=== PATIENT | male | born 1945 | race Caucasian/White ===

== ENCOUNTER 2018-09-25 08:47 | Inpatient (IN) | payer OTHER ==
[2018-09-25] VITALS (13 sets, daily range): BP systolic 91–141; BP diastolic 59–82
[~2018-09-25] VITALS: Ht 185.4 cm; Wt 94.2 kg
--- NOTE | ~2018-09-25 | EKG ---
[address] [place] [address] ELECTROCARDIOGRAM REPORT Name: SIMBA RICARDO Room #: 214-P ADM IN M.R.#: [id number] Admission: 09/25/18 Attend Phys: Joanna Cosme MD Discharge: Date of : 49 Report #: [id number] THIS REPORT FOR: //name// [facility] ED Test Date: 2018-09-25 Test Time: 08:52:06 Pat Name: SIMBA RICARDO Department: Room: 214 P Gender: M Packing Inspector: anamaria : 1945 Requested By: Buck Reynoso Order Number: [id number] MD: Measurements Intervals [place] Rate: 60 P: 73 OK: 275 QRS: 49 QRSD: 103 T: 101 QT: 415 QTc: 415 Interpretive Statements Sinus rhythm Prolonged [place] interval Inferior infarct, acute (RCA) Probable RV involvement, suggest recording right precordial leads No previous ECG available for comparison [email or web address] By: 0852 0852 Epiphany Epiphany, /EPI
--- NOTE | 2018-09-25 08:47 | NUR ---
FOAM RUBBER MIXER ACTIVATED AT 0832 ON EMS EARLY NOTIFICATION LOSS PREVENTION LEAD
[2018-09-25 09:29] LABS: HEMATOCRIT 44.1 % (42.0-52.0); HEMOGLOBIN 15.2 gm/dL (14.0-18.0); MCH 30.4 pg (26.0-34.0); MCHC 34.3 g/dL (28.0-37.0); MCV 88.6 fL (80.0-100.0); RBC 4.98 mil/uL (4.50-6.00); RDW 13.7 % (10.5-14.5); WBC 6.5 thou/uL (4.0-11.0)
[2018-09-25 09:32] LABS: ANION GAP 14 mmol/L (7-16); BUN 16 mg/dL (7-18); CALCIUM 9.3 mg/dL (8.5-10.1); CHLORIDE 103 mmol/L (98-107); CO2 22 mmol/L (21-32); CREATININE 1.4 mg/dL (0.7-1.3); GLUCOSE 151 mg/dL (74-106); SODIUM 139 mmol/L (136-145)
[2018-09-25 09:40] LABS: ALBUMIN 3.6 g/dL (3.4-5.0); SGOT 24 U/L (15-37); SGPT 31 U/L (30-65); TOTAL BILIRUBIN 0.3 mg/dL (<0.1-1.0); TOTAL PROTEIN 6.9 g/dL (6.4-8.2); TROPONIN-I <0.06 ng/mL (<0.06)
[2018-09-25 10:38] LABS: CHOLESTEROL 223 mg/dL (<200); HDL CHOLESTEROL 46 mg/dL (>40); LDL CHOLESTEROL 155 mg/dL (<100); TC:HDL 4.8 Ratio (Not establshd); TRIGLYCERIDE 112 mg/dL (<150); VLDL 22 mg/dL (<40)
[2018-09-25 10:44] LABS: SERUM ASSESSMENT Clear
--- NOTE | 2018-09-25 12:06 | EKG ---
[address] [employer] [place] [address] ELECTROCARDIOGRAM REPORT Name: SIMBA RICARDO Room #: 214-P ADM IN M.R.#: [id number] Admission: 09/25/18 Attend Phys: Joanna Cosme MD Discharge: Date of : 49 Report #: [id number] THIS REPORT FOR: //name// [facility] ED Test Date: 2018-09-25 Test Time: 08:52:06 Pat Name: SIMBA RICARDO Department: Room: 214 P Gender: M Cpa Tax: anamaria : 1945 Requested By: Buck Reynoso Order Number: [id number] MD: Buck Reynoso Measurements Intervals [place] Rate: 60 P: 73 MI: 275 QRS: 49 QRSD: 103 T: 101 QT: 415 QTc: 415 Interpretive Statements Sinus rhythm Prolonged MI interval Inferior infarct, acute (RCA) Probable RV involvement, suggest recording right precordial leads No previous ECG available for comparison Electronically Signed On 09-25-2018 12:06:25 FOUNTAIN MANAGER by Buck Reynoso [email or web address] <ELECTRONICALLY SIGNED> By: Buck Reynoso MD, [facility] 09/25/18 1206 Buck Reynoso MD, [facility] /EPI
--- NOTE | 2018-09-25 12:13 | EKG ---
[address] [address] ELECTROCARDIOGRAM REPORT Name: SIMBA RICARDO Room #: 214-P ADM IN M.R.#: [id number] Admission: 09/25/18 Attend Phys: Joanna Cosme MD Discharge: Date of : 49 Report #: [id number] THIS REPORT FOR: //name// [facility] Test Date: 2018-09-25 Test Time: 10:53:43 Pat Name: SIMBA RICARDO Department: Room: 214 P Gender: M Missile Pad Mechanic: VINCENT : 1945 Requested By: Buck Reynoso Order Number: [id number] MD: Buck Reynoso Measurements Intervals [place] Rate: 61 P: 45 OK: 230 QRS: -3 QRSD: 94 T: 90 QT: 424 QTc: 427 Interpretive Statements Sinus rhythm Prolonged OK interval Inferior infarct, recent No previous ECG available for comparison Electronically Signed On 09-25-2018 12:13:03 PARTY HOST/HOSTESS by Buck Reynoso [email or web address] <ELECTRONICALLY SIGNED> By: Buck Reynoso MD, [facility] 09/25/18 1213 1053 1053 Buck Reynoso MD, FACC /EPI
--- NOTE | 2018-09-25 12:15 | HC ---
[facility] [place] [address] CONSULTATION Name: SIMBA RICARDO Room #: 214-P [facility] IN M.R.#: [id number] Admission: 09/25/18 Attend Phys: Joanna Cosme MD Discharge: Date of : 49 Report #: [id number] THIS REPORT FOR: //name// CC: Mitch Cosme DATE OF SERVICE: 09/25/2018 REASON FOR CONSULTATION: Chest pain. HISTORY OF PRESENT ILLNESS: The patient is a 73-year-old gentleman with a fairly limited past medical history. Around 7:00 a.m. this morning, he experienced upper neck midsternal chest and back pain. This is associated with mild diaphoresis. Paramedics were summoned and an EKG in the field at 08:28 a.m. demonstrated inferior injury pattern. He has ongoing discomfort. No heart failure symptoms including orthopnea, paroxysmal nocturnal dyspnea, or lower extremity edema. No history of palpitations, near syncope or syncope. MEDICATIONS: Include eye drops for glaucoma. ALLERGIES: PCN, sulfa. PAST MEDICAL HISTORY: Medical records. No significant hospitalizations, surgeries or illnesses. 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 FAMILY HISTORY: Notable for coronary artery disease in several family members. REVIEW OF SYSTEMS: All systems negative except as that noted above. PHYSICAL EXAMINATION: GENERAL: A pleasant gentleman in moderate distress. VITAL SIGNS: Blood pressure is 110/70, heart rate of 60 and regular, respirations unlabored. HEENT: There are neither xanthelasma, subcutaneous xanthomata, oral mucosal or digital cyanosis or kyphoscoliosis present. CHEST: Clear to auscultation and percussion. CARDIAC: Regular rate and rhythm with normal S1, S2. Heart sounds are distant. ABDOMEN: Soft and nontender. EXTREMITIES: Without cyanosis, clubbing or edema. Radial pulses are 2+. NEUROLOGIC: He is alert with a nonfocal exam. LABORATORY DATA: EKG, sinus rhythm with first degree AV block, inferior injury pattern. Blood work and radiographic studies remain pending. [facility] [address] [place] [address] CONSULTATION Name: SIMBA RICARDO Room #: 214-P [facility] IN M.R.#: [id number] Admission: 09/25/18 Attend Phys: Joanna Cosme MD Discharge: Date of : 49 Report #: [id number] IMPRESSION: 1. Acute inferior myocardial infarction 2. Dyslipidemia 3. Sleep apnea RECOMMENDATIONS: 1. Therapy with antiplatelets, anticoagulants. 2. Urgent coronary angiography. I have discussed the angiographic procedure in detail including its associated risks. After a thorough discussion of the procedure, its risks and alternatives, he is agreeable to proceeding. No contraindications to dual antiplatelet therapy. <ELECTRONICALLY SIGNED> By: Buck Reynoso MD, [facility] 09/25/18 1215 0903 1107 Buck Reynoso MD, FACC /nt
[2018-09-25 23:05] LABS: GLYCOHEMOGLOBIN (HGB A1C) 5.7 % (4.8-5.6)
[2018-09-26] VITALS (7 sets, daily range): BP systolic 98–117; BP diastolic 49–72
[2018-09-26 03:55] LABS: ANION GAP 9 mmol/L (7-16); BUN 14 mg/dL (7-18); CALCIUM 8.5 mg/dL (8.5-10.1); CHLORIDE 105 mmol/L (98-107); CO2 25 mmol/L (21-32); CREATININE 1.1 mg/dL (0.7-1.3); GLUCOSE 116 mg/dL (74-106); SODIUM 139 mmol/L (136-145)
[2018-09-26 04:10] LABS: HEMATOCRIT 37.2 % (42.0-52.0); MCH 30.3 pg (26.0-34.0); MCHC 33.3 g/dL (28.0-37.0); RBC 4.09 mil/uL (4.50-6.00); RDW 14.1 % (10.5-14.5); TROPONIN-I > 40.00 ng/mL (<0.06); WBC 9.4 thou/uL (4.0-11.0)
[2018-09-26 04:21] LABS: HEMOGLOBIN 12.4 gm/dL (14.0-18.0)
--- NOTE | 2018-09-26 07:43 | NUR ---
ASSUME CARE 1900. PT/VITALS STABLE. MILD NON CARDIAC CHEST PAIN NOTED. ASSESSMENT CHARTED. PROGRESSNG WELL WITH POC. PLAN IS A POSSIBLE DISCHARGE TOMORROW FOLLOWING STEMI PROTOCOL. WILL CONTINUE TO MONITOR AND FOLLOW WITH POC
--- NOTE | 2018-09-26 09:23 | EKG ---
[address] [place] [address] ELECTROCARDIOGRAM REPORT Name: SIMBA RICARDO Room #: 214-P ADM IN M.R.#: [id number] Admission: 09/25/18 Attend Phys: Joanna Cosme MD Discharge: Date of : [birth year] Report #: [id number] THIS REPORT FOR: //name// [facility] Test Date: 2018-09-26 Test Time: 07:00:17 Pat Name: SIMBA RICARDO Department: Room: 214 P Gender: M Hostage Negotiator: : 1945 Requested By: Buck Reynoso Order Number: [id number] MD: Buck Reynoso Measurements Intervals [place] Rate: 56 P: 48 NV: 202 QRS: -20 QRSD: 82 T: 48 QT: 403 QTc: 389 Interpretive Statements Sinus rhythm Abnormal R-wave progression, early transition Inferior infarct, old Compared to ECG 09/25/2018 10:53:43 First degree AV block no longer present Electronically Signed On 09-26-2018 9:22:41 MEDIC TECHNICIAN by Buck Reynoso [email or web address] <ELECTRONICALLY SIGNED> By: Buck Reynoso MD, [facility] 09/26/18921 9 9 Buck Reynoso MD, [facility] /EPI
--- NOTE | 2018-09-26 11:11 | NUR ---
PT HAS LARGE BRUISING AREA RIGHT GROIN. PT HAS BEEN ASSESSED BY OIL AND GAS FIELD TECHNICIAN AND INFORMED PT THAT BRUISING WILL INCREASE MORE UNTIL EVENTUALY GOING AWAY. NO BLEDING AT SITE OR HEMATOMA. WILL CONTINUE TO ASSESS.
--- NOTE | 2018-09-26 11:22 | 2DMMODE ---
[facility] [place] [address] 2 D/M-MODE ECHOCARDIOGRAM Name: DAVIONSIMBA Room #: 214-P ADM IN M.R.#: [id number] Admission: 09/25/18 Attend Phys: Joanna Cosme MD Discharge: Date of : 49 Date of Service: 09/26/18 1121 Report #: [id number] THIS REPORT FOR: //name// APPROVED REPORT Study performed: 09/26/2018 09:36:37 EXAM: Comprehensive 2D, Doppler, and color-flow Echocardiogram Patient Location: Bedside Room #: 214 Status: routine BSA: 2.18 HR: 59 bpm BP: 117/72 mmHg Rhythm: NSR Other Information Study Quality: Adequate Risk Factors: Cardiac Risk Factors: Hyperlipidemia, HTN Indications Chest Pain S/P Stent RCA Inferior AK 2D Dimensions IVSd: 9.08 (7-11mm) LVOT Diam: 20.00 (18-24mm) LVDd: 39.58 mm PWd: 9.39 (7-11mm) Ascending Ao: 29.55 (22-36mm) LVDs: 26.02 (25-40mm) Aortic Root: 32.28 mm LV Single Plane 4CH: 61.69 % LV Single Plane 2CH: 67.11 % Biplane EF: 64.8 % Volumes Left Atrial Volume (Systole) Single Plane 4CH: 30.26 mL Single Plane 2CH: 58.59 mL LA ESV Index: 22.00 mL/m2 Aortic Valve AoV Peak Law.: 1.39 m/s AO Peak Gr.: 7.69 mmHg LVOT Max P.51 mmHg [facility] [address] [place] [address] 2 D/M-MODE ECHOCARDIOGRAM Name: DAVIONSIMBA Room #: 214-P ADM IN ..#: [id number] Admission: 09/25/18 Attend Phys: Joanna Cosme MD Discharge: Date of : 49 Date of Service: 09/26/18 1121 Report #: [id number] LVOT Max V: 1.06 m/s BENITO Vmax: 2.51 cm2 Mitral Valve E/A Ratio: 1.4 MV Decel. Time: 218.34 ms MV E Max Law.: 0.69 m/s MV A Law.: 0.49 m/s MV PHT: 63.32 ms IVRT: 41.52 ms TDI E/Lateral E': 9.86 E/Medial E': 9.86 Medial E' Law.: 0.07 m/s Lateral E' Law.: 0.07 m/s Pulmonary Valve PV Peak Law.: 0.92 m/s PV Peak Gr.: 3.36 mmHg Pulmonary Vein P Vein S: 0.56 m/s P Vein A: 0.35 m/s P Vein D: 0.39 m/s P Vein A Dur.: 115.3 msec P Vein S/D Ratio: 1.44 Tricuspid Valve TR Peak Law.: 2.19 m/s RAP Estimate: 7.00 mmHg TR Peak Gr.: 19.13 mmHg PA Pressure: 26.00 mmHg Left Ventricle The left ventricle is normal size. There is normal left ventricular wall thickness. Left ventricular systolic function is normal. Hypokinesis base of inferior, inferolateral and inferoseptal goldsmith. LVEF 50%. The left ventricular diastolic function is normal. Right Ventricle The right ventricle is normal size. The right ventricular systolic function is normal. Atria The left atrium size is normal. The right atrium size is normal. Aortic Valve The aortic valve is normal in structure. No aortic regurgitation is present. There is no aortic valvular stenosis. [facility] [address] [place] [address] 2 D/M-MODE ECHOCARDIOGRAM Name: SIMBA RICARDO Room #: 214-P [facility] IN .R.#: [id number] Admission: 09/25/18 Attend Phys: Joanna Cosme MD Discharge: Date of : 49 Date of Service: 09/26/18 1121 Report #: [id number] Mitral Valve The mitral valve is normal in structure. Trace mitral regurgitation. No evidence of mitral valve stenosis. Tricuspid Valve The tricuspid valve is normal in structure. Trace tricuspid regurgitation. Pulmonary artery pressure is 26 mmHg. Pulmonic Valve The pulmonary valve is normal in structure. Trace pulmonic regurgitation. Great Vessels The aortic root is normal in size. IVC is normal in size and collapses >50% with inspiration. Pericardium There is no pericardial effusion. <Conclusion> Left ventricular systolic function is normal. Hypokinesis base of inferior, inferolateral and inferoseptal goldsmith. LVEF 50%. The left ventricular diastolic function is normal. The aortic valve is normal in structure. No aortic regurgitation or stenosis The mitral valve is normal in structure. Trace mitral regurgitation. Trace tricuspid regurgitation. Pulmonary artery pressure of 26 mmHg. There is no pericardial effusion. <ELECTRONICALLY SIGNED> By: Buck Reynoso MD, FACC 09/26/18 112 112 112 Buck Reynoso MD, FACC /INF
--- NOTE | 2018-09-26 18:47 | NUR ---
PT AMBULATED HALLS WELL. PT HAD NO COMPLAINTS THIS SHIFT.
[2018-09-27 03:04] VITALS: BP 109/66
[2018-09-27 03:32] LABS: CALCIUM 8.8 mg/dL (8.5-10.1); CREATININE 1.1 mg/dL (0.7-1.3); POTASSIUM 4.1 mmol/L (3.5-5.1)
[2018-09-27 03:38] LABS: HEMOGLOBIN 12.7 gm/dL (14.0-18.0); MCHC 34.2 g/dL (28.0-37.0); MCV 90.6 fL (80.0-100.0); RBC 4.09 mil/uL (4.50-6.00); RDW 13.6 % (10.5-14.5)
--- NOTE | 2018-09-27 07:42 | NUR ---
ASSUME CARE 1900. PT/VITALS STABLE. DENIES ANY PAIN. TOLERATING ACTIVITY WELL. UP AD CY. PROGRESSING WELL WITH POC. PLAN IS DISCHARGE TODAY. WILL CONTINUE TO MONITOR AND FOLLOW WITH POC
--- NOTE | 2018-09-27 08:39 | EKG ---
[address] [place] [address] ELECTROCARDIOGRAM REPORT Name: SIMBA RICARDO Room #: 214-P ADM IN M.R.#: [id number] Admission: 09/25/18 Attend Phys: Joanna Cosme MD Discharge: Date of : 49 Report #: [id number] THIS REPORT FOR: //name// [facility] Test Date: 2018-09-27 Test Time: 07:07:59 Pat Name: SIMBA RICARDO Department: Room: 214 P Gender: M Space Officer: : 1945 Requested By: Missy aBrrera Order Number: [id number] MD: Buck Reynoso Measurements Intervals [place] Rate: 76 P: 47 NV: 191 QRS: -19 QRSD: 87 T: -3 QT: 359 QTc: 404 Interpretive Statements Sinus rhythm Consider inferoposterior infarct Compared to ECG 09/26/2018 07:00:17 No significant changes Electronically Signed On 09-27-2018 8:39:37 JUNIOR SYSTEMS ADMINISTRATOR by Buck Reynoso [email or web address] <ELECTRONICALLY SIGNED> By: Buck Reynoso MD, [facility] 09/27/18 0839 0707 6 Buck Reynoso MD, FACC /EPI
[2018-09-27 08:55] VITALS: BP 98/55
[2018-09-27] MEDS ORDERED: EFFIENT10 MG PO (08:57)
[2018-09-27] MEDS ORDERED: ASPIRIN325 PO (08:57)
[2018-09-27] MEDS ORDERED: ATORVASTATIN CA40 MG PO (08:57)
[2018-09-27] MEDS ORDERED: TOPROL XL25 MG PO (08:57)
[2018-09-27] MEDS ORDERED: PRINIVIL10 MG PO (08:58)
--- NOTE | 2018-09-27 10:21 | NUR ---
PT CARE ASSUMED APPROX 0700. PT ALERT AND ORIENTED X4. DENIES PAIN AND SOA. VSS. PT TO DISCHARGE HOME TO SELF CARE. PT DENIES QUESTIONS OR CONCERNS REGARDING DISCHARGE MEDS, F/U APPTS, DIET, ACTIVITY LEVEL, POST CATH INSTRUCTIONS, AND GENERAL POST HOSPITAL CARE. RIGHT GROIN POST CATH SITE C/D/I AND POST CATH DISCHARGE FORM ATTACHED TO DISCHARGE PAPERWORK. IV OUT, TELE BOX OFF. WILL ESCORT PT OUT TIMELY.
[2018-09-27 10:28] VITALS: BP 98/60
--- NOTE | 2018-09-27 11:05 | NUR ---
HOSPITAL STAFF ESCORTED PT OUT AT THIS TIME.
--- NOTE | 2018-09-29 08:39 | CATHLAB ---
[facility] [place] [place] [address] INVASIVE PROCEDURE REPORT Name: SIMBA RICARDO Room #: 214-P DIS IN M.R.#: [id number] Admission: 09/25/18 Attend Phys: Joanna Cosme MD Discharge: 09/27/18 Date of : 49 Date of Service: 09/29/18 0839 Report #: [id number] THIS REPORT FOR: //name// ADDENDUM APPROVED REPORT Study performed: 09/25/2018 09:03:25 Patient Details Patient Status: In-Patient Room #: The patient is a 73 year-old male Event Personnel Buck Reynoso Balance Wheel Hand Filer, Sallie Courtney RN RN, Ciera Restrepo Monitor, Shu Mastersonub, Danette Licona RT(R)() Scrrazia Procedures Performed Art Access - R femoral artery* 23389 Initial Mod Sed Same Phys/QHP Gr5y 645773 10869 Mod Sed Same Phys/QHP Ea 194266 Left Heart Cath w/or w/o Coronaries 1004160 [facility] Revasc AMI Total/Sub Single RCA C9606 AMIREVSING Aortogram Abdominal Peripheral Angio 199328 Hemostasis w/ Mynx Indication STEMI (>0 to less than or equal to 6 hours) Procedure Narrative The patient was brought emergently to the Cardiac Catheterization Laboratory and was prepped and draped in a sterile manner. The Right Groin^ was infiltrated with 1% Lidocaine subcutaneous anesthesia. A PINNACLE 6FR Sheath #[id number] sheath was inserted into the RFA^. Coronary angiography was performed using coronary diagnostic catheters. The right coronary system was accessed and visualized with a JR 4 catheter. The left coronary system was accessed and visualized with a JL 4 catheter. The left ventricle was accessed and visualized with a Pigtail catheter. Left ventricular/Aortic Valve gradient assessed via catheter pullback. Left ventriculogram was performed in RABAGO projection. An aortogram of the abdominal aorta was performed. Closure device was deployed with a 6 Fr [facility] [place] [address] INVASIVE PROCEDURE REPORT Name: SIMBA RICARDO Room #: 214-P [facility] IN [facility].#: [id number] Admission: 09/25/18 Attend Phys: Joanna Cosme MD Discharge: 09/27/18 Date of : 49 Date of Service: 09/29/18 0839 Report #: [id number] Mynx. The patient tolerated the procedure well and there were no complications associated with the procedure. There was no hematoma. Intraoperative Conscious Sedation Sedation start time: 09:15 Case end Time: 10:14 Fentanyl 50 mcg Versed 1 mg Fluoro Time: 11.29 minutes Dose: DAP 8892.00 cGycm2 997 mGy Contrast Type and Amount: Visipaque 250 ml Coronary Angiography The patient's coronary anatomy is right dominant. [place] Artery Percent Stenosis Aortography demonstrated a normal calibered aorta. Mild aortoiliac plaquing. 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 Follow closely Diagnostic Cath Left Main 20-30% distal left main plaquing LAD The left anterior descending was diffusely disease. There is a long tubular 50-60% proximal to mid LAD stenosis. 75% stenosis of the distal third of the LAD Diagonal 1 Relatively small and angiographically normal Diagonal 2 Moderate in size and angiographically normal Circumflex The circumflex was large and comprised of a single bifurcating marginal branch. Mild 20-30% proximal marginal branch plaquing. Right Coronary The right coronary was occluded proximally. JANET 0 flow R PDA Large posterior descending branch, angiographically normal RPLV Large posterior lateral branch, angiographically normal Left Ventriculography The left ventricle is normal in size with abnormal contractility. The left ventricular ejection fraction is estimated to be 45-50%. Left ventricular wall motion abnormalities are present. There is no mitral insufficiency. Mild inferior wall hypokinesis Hemodynamics [facility] [address] [place] [address] INVASIVE PROCEDURE REPORT Name: SIMBA RICARDO Room #: 214-P [facility] IN M.R.#: [id number] Admission: 09/25/18 Attend Phys: Joanna Cosme MD Discharge: 09/27/18 Date of : 49 Date of Service: 09/29/18 0839 Report #: [id number] The aortic pressure is 174/80 mmHg with a mean of 114 mmHg. The left ventricular pressure is 137/6 mmHg with a mean of mmHg. The left ventricular end diastolic pressure is 17 mmHg. PCI Technique Lesion Anticoagulation was achieved with Heparin, Integrilin. Patient was preloaded with Effient. Percutaneous coronary intervention was performed on the proximal right coronary artery. The lesion stenosis prior to intervention was 100% with JANET 0 flow. A LAUNCHER 6FR JR 4 #[id number] Guide Catheter was used to engage the ostium. A Luge Wire .014 x 182CM #[id number] Interventional Guidewire was used to cross the lesion. BALLOON DILATION A Balloon catheter Euphora RX 2.5 x 12 #[id number] was inserted and inflated up to 6.00atm for 15seconds. Repeat angiography revealed the following post-dilatation results: long severe proximal to mid right coronary residual stenosis. JANET-3 flow restored. Additional Inflation: 8.00atm for 24seconds. Additional Inflation: 10.00atm for 28seconds. STENT DEPLOYMENT A drug-eluting stent RESOLUTE ALEXI RX 3.0 X 30 #[id number] was inserted and inflated up to 14.00atm for 25seconds. Repeat angiography revealed the following post-stent deployment results: 0% residual stenosis. JANET-3 flow maintained. POST STENT DEPLOYMENT BALLOON DILATION A Balloon catheter TREK NC RX 3.0 X 15 #[id number] was inserted and inflated up to 20.00atm for 25seconds. Additional Inflation: 20.00atm for 32seconds. Additional Inflation: 22.00atm for 22seconds. Final angiography reveals 0 % stenosis with JANET 3 flow. Conclusion 1. Mild left ventricular dysfunction with inferior wall hypokinesis. Ejection fraction 45-50%. [facility] [address] [place] [address] INVASIVE PROCEDURE REPORT Name: SIMBA RICARDO Room #: 700-P DIS IN M.R.#: [id number] Admission: 09/25/18 Attend Phys: Joanna Cosme MD Discharge: 09/27/18 Date of : 49 Date of Service: 09/29/1839 Report #: [id number] 2. 20-30% distal left main plaquing. 3. Diffusely diseased left anterior descending. Long tubular 50-60% proximal to mid LAD stenosis. Distal 75% LAD stenosis near the apex 4. Large, nondominant circumflex comprised of a single marginal branch. Mild proximal marginal branch plaquing 5. Dominant right coronary occluded proximally, successfully stented with a 3.0 x 30 mm Alexi Resolute medicated stent. JANET III restored. Post-dilated to 3.2mm 6. Mild plaquing of the aortoiliac system. No aneurysm or dissection. Recommendations Cardiac Rehabilitation Referral Aggressive Medical Therapy Medications Administered MIAN Inhibitor (any) Aspirin (any) Beta Darrian (any) Statin (any) Prasugrel Cardiac Rehabilitation Referral <ELECTRONICALLY SIGNED> By: Buck Reynoso MD, FACC 09/29/18838 8 8 Buck Reynoso MD, FACC /INF
== END 2018-09-27 11:16 | disposition home or self-care (01) | DRG 246 ==
LOC: ER 08:47 → EROBS 09:06 → 2N 09:06 → ENTRNSPT 09-27 10:50 → EDTRNSPTSTS 09-27 10:53 → 2N 09-27 11:16
PROVIDERS: Emergency Medicine; Hospitalist; Internal Medicine; ADMIT Internal Medicine
DX: I21.19 ST elevation (STEMI) myocardial infarction involving other coronary artery of inferior wall (principal); I50.33 Acute on chronic diastolic (congestive) heart failure; G47.33 Obstructive sleep apnea (adult) (pediatric); I25.10 Atherosclerotic heart disease of native coronary artery without angina pectoris; E78.5 Hyperlipidemia, unspecified; K21.9 Gastro-esophageal reflux disease without esophagitis; I11.0 Hypertensive heart disease with heart failure; Z88.0 Allergy status to penicillin; Z88.2 Allergy status to sulfonamides; Z82.49 Family history of ischemic heart disease and other diseases of the circulatory system; Z79.02 Long term (current) use of antithrombotics/antiplatelets; Z79.01 Long term (current) use of anticoagulants; Z79.899 Other long term (current) drug therapy
CPT/HCPCS: 10081

== ENCOUNTER 2018-09-27 20:50 | Inpatient (IN) | payer OTHER ==
[~2018-09-27] VITALS: Ht 185.4 cm; Wt 93.2 kg
[~2018-09-27 20:50] MED LIST: ASPIRIN325 PO; ATORVASTATIN CA40 MG PO; EFFIENT10 MG PO; PRINIVIL10 MG PO; TOPROL XL25 MG PO
[2018-09-27 20:55] VITALS: BP 90/56
[2018-09-27 21:47] LABS: HEMATOCRIT 37.3 % (42.0-52.0); HEMOGLOBIN 12.6 gm/dL (14.0-18.0); MCH 30.5 pg (26.0-34.0); MCHC 33.8 g/dL (28.0-37.0); MCV 90.3 fL (80.0-100.0); PLATELET COUNT 198 thou/uL (150-400); RBC 4.13 mil/uL (4.50-6.00); RDW 13.6 % (10.5-14.5); WBC 11.1 thou/uL (4.0-11.0)
[2018-09-27 21:50] LABS: CREATININE 1.4 mg/dL (0.7-1.3)
[2018-09-27 21:58] LABS: ALBUMIN 3.1 g/dL (3.4-5.0)
[2018-09-27 22:02] LABS: TROPONIN-I 13.56 ng/mL (<0.06)
[2018-09-27 22:12] LABS: ABSOLUTE NEUTROPHILS 8.5 thou/uL (1.4-8.2)
[2018-09-27 22:14] LABS: PLATELET ESTIMATE NORMAL
[2018-09-27 23:48] LABS: URINE BILIRUBIN NEGATIVE (Negative); URINE BLOOD TRACE (Negative); URINE CLARITY CLEAR; URINE COLOR YELLOW; URINE GLUCOSE-RANDOM* NEGATIVE (Negative); URINE KETONES NEGATIVE (Negative); URINE PROTEIN (DIPSTICK) NEGATIVE (Negative); URINE SPECIFIC GRAVITY <= 1.005 (1.005-1.035)
[2018-09-27 23:49] LABS: URINE LEUKOCYTES-REFLEX NEGATIVE (Negative); URINE NITRITE-REFLEX NEGATIVE (Negative)
[2018-09-28] VITALS (70 sets, daily range): BP systolic 59–144; BP diastolic 24–113
[2018-09-28 00:33] LABS: HEMATOCRIT 21.3 % (42.0-52.0)
[2018-09-28 00:35] LABS: HEMOGLOBIN 7.2 gm/dL (14.0-18.0)
[2018-09-28 05:52] LABS: HEMATOCRIT 32.2 % (42.0-52.0)
[2018-09-28 06:03] LABS: INR 1.1; PROTIME 11.3 Seconds (9.3-11.4)
--- NOTE | 2018-09-28 06:19 | NUR ---
ADMITTED PT TO ICU. SEE [facility]. PT DENIES CHEST,ABD OR GROIN PAIN. SBP 90'S. RT GROIN BRUISED NOTED FROM PREVIOUS CATH. KCONIGILIO ORDERED WITH HGB 7.2. -1 UNIT INFUSED WITHOUT DIFFICULTY. POST HH-HBG 11.0. VOIDING PER URINAL--UO ADEQUATE. MAINT IV FLUIDS INFUSING-BP REMAINS BORDERLINE. ASSESSMENT UNCHANGED. CONT TO MONITOR
--- NOTE | 2018-09-28 08:08 | EKG ---
[place] [address] [facility] [place] [employer] [place] [address] ELECTROCARDIOGRAM REPORT Name: SIMBA RICARDO Room #: 236-P ADM IN M.R.#: [id number] Admission: 09/28/18 Attend Phys: Jarod Toney MD Discharge: Date of : 49 Report #: [id number] THIS REPORT FOR: //name// [facility] ED Test Date: 2018-09-27 Test Time: 20:54:53 Pat Name: SIMBA RICARDO Department: Room: 236 Gender: M Nanotechnology Engineering Technician: : 1945 Requested By: Floyd Peralta Order Number: [id number] MD: Buck Reynoso Measurements Intervals [place] Rate: 75 P: 54 [place]: 187 QRS: -25 QRSD: 95 T: -52 QT: 371 QTc: 415 Interpretive Statements Sinus rhythm Abnormal R-wave progression, early transition Inferior infarct, recent Compared to ECG 09/27/2018 07:07:59 No significant changes Electronically Signed On 09-28-2018 8:08:23 MANUFACTURING MAINTENANCE TECHNICIAN by Buck Reynoso [email or web address] <ELECTRONICALLY SIGNED> By: Buck Reynoso MD, [facility] [address] [id number] 53 Buck Reynoso MD, [facility] /EPI
--- NOTE | 2018-09-28 14:22 | NUR ---
PT ALERT AND ORIENTED TIMES FOUR. VSS, 100%RA, SR ON TELE, IVF INFUSING PER ORDER. PT DENIES PAIN/SOA. PT NPO FOR RIGHT ILIAC DISSECTION TODAY. PT UP TO BSC WITH STANDBY ASSIST. PT AT BEDSIDE. WILL CONTINUE TO MONITOR.
--- NOTE | 2018-09-28 14:30 | NUR ---
CM ASSESSMENT: CASE OPENED FOR DC PLANNING. CLINICAL INFO REVIEWED. PT DC 09/28/18 AFTER ADMIT FOR ACUTE INFERIOR SD AND STENT TO RCA. READMIT AFTER HYPOTENSION WITH SOA AND CALLED CARDIOLOGY OFFICE WHO DIRECTED PT TO COME TO [facility] ER. CTA DOEN SHOWING DISSECTION STATING AT MESENTERIC ARTERY AND EXTENDING INTO RIGHT ILIAC. PLAN FOR AORTOGRAM TODAY WITH POSSIBLE STENT. PT LIVES WITH SPOUSE IN HOUSE. ADMINISTRATIVE SUPPORT MANAGER, INDEPENDENT WITH ADLS, NO DME. CM AVAILABLE TO ASSIST IWTH COORDINATION OF NEEDS AT DC, POSSIBLE HH.
[2018-09-28 15:44] LABS: HEMATOCRIT 33.1 % (42.0-52.0); HEMOGLOBIN 11.3 gm/dL (14.0-18.0)
[2018-09-29] VITALS (19 sets, daily range): BP systolic 95–132; BP diastolic 55–72
[2018-09-29 05:25] LABS: HEMATOCRIT 32.3 % (42.0-52.0)
[2018-09-29 05:26] LABS: HEMATOCRIT 31.3 % (42.0-52.0); HEMOGLOBIN 10.7 gm/dL (14.0-18.0); MCH 30.5 pg (26.0-34.0); MCV 89.5 fL (80.0-100.0); RBC 3.5 mil/uL (4.50-6.00); RDW 14.2 % (10.5-14.5); WBC 7.9 thou/uL (4.0-11.0)
[2018-09-29 05:38] LABS: CALCIUM 7.8 mg/dL (8.5-10.1); POTASSIUM 3.7 mmol/L (3.5-5.1)
--- NOTE | 2018-09-29 07:38 | NUR ---
RETURNED FROM TRAFFIC WORKER AT SHIFT CHANGE YESTERDAY EVENING. LEFT GROIN SITE DRY AND INTACT; PT HAS FISH CLOSURE DEVICE. CATH SITE AND PULSE CHECKS DIRECTED. OFF BEDREST AT 0030. PT UP ONCE TO TOILET THIS AM. C/O PAIN/DISCOMFORT ONCE, IN BACK, OVERNIGHT; TYLENOL GIVEN. DR. DRAKE SAW PT THIS AM. HEART HEALTHY DIET ORDERED. TX ORDERS FOR CCU ORDERED. ASSESSMENTS AND VITALS DOCUMENTED. WILL CONTINUE TO MONITOR.
--- NOTE | 2018-09-29 18:13 | NUR ---
ASSUMED CARE OF PT AT 0700. VSS. ENCOURAGED PT TO INCREASE ACTIVITY WHEN POSSIBLE. TOLERATING DIET. BELLY SOMEWHAT ROUND, PT HAD BM, BUT FEELS HE MAY BE SLIGHTLY CONSTIPATED. TREATED MINOR HEADACHE WITH TYLENOL WITH GOOD RESULTS. SPOUSE AT BEDSIDE. CONTINUE TO MONITOR UNTIL TRANSFER TO CCU 218.
--- NOTE | 2018-09-30 04:25 | NUR ---
ASSESSMENT DOCUMENTED.PT BEEN RESTING IN NAD.VSS.PT HAD ONE EPISODE OF NAUSEA WITH VOMITING.PT ALSO PASSING GAS AND BELCHING.SPIRIT SODA GIVEN ALONG WITH ZOFRAN THAT SEEMED TO HELP.PT ALSO C/O HEADCHES WITH LOWER LEGS RESTLESSNESS.TYLENOL GIVEN PER ORDER WITH RELIEF.DONG GROINS INTACT.BRUSING TO RIGHT GROIN AND PELVIC AREA.DRESSING TO LEFT GROIN,CDI.SPOUSE AT BEDSIDE.WILL CONT TO MONITOR PER OC.
[2018-09-30 05:08] VITALS: BP 115/71
[2018-09-30 05:22] LABS: HEMATOCRIT 30.7 % (42.0-52.0); HEMOGLOBIN 10.7 gm/dL (14.0-18.0)
[2018-09-30 08:10] VITALS: BP 95/61
[2018-09-30 10:45] LABS: CALCIUM 8.4 mg/dL (8.5-10.1); MAGNESIUM 2.1 mg/dL (1.8-2.4); POTASSIUM 3.9 mmol/L (3.5-5.1)
[2018-09-30 11:05] LABS: MCV 87.9 fL (80.0-100.0); RBC 3.53 mil/uL (4.50-6.00); WBC 8.2 thou/uL (4.0-11.0)
[2018-09-30 11:06] LABS: MCHC 34.1 % (28.0-37.0)
[2018-09-30 11:20] VITALS: BP 94/61
--- NOTE | 2018-09-30 15:20 | NUR ---
Pt progressing with possible dc this weekend. Therapy recommendations noted and discussed with the pt at bedside. He is receptive to HH RN and therapy followup;however he is not sure if he will be homebound for more than a couple of days. He will discuss with his and see how he is feeling tomorrow. He denies agency preference. He is normally very indep and drives. His pcp is . Referral sent to [facility] for possible wkend referral.
[2018-09-30 15:58] VITALS: BP 98/46
--- NOTE | 2018-09-30 16:17 | NUR ---
NOTIFIED JADE IN ADM.AT [facility] ABOUT REFERRAL SHE REVIEWED AND WILL BE ABLE TO ACCEPT PT. AT DISCHARGE.
--- NOTE | 2018-09-30 17:29 | NUR ---
ASSESSMENT CHARTED - MEDS PER NOV - GIVEN TYLENO; X 2 DOSES FOR CO'S OF HEADACHE WITH MOD EFFECT - UP AD CY IN ROOM - SEEN BY PHSY THERAPY. PATIENT WITH UPSET STOMACH THIS AM - PT WITH HISTORY OF GERD STARTED ON PEPCID THIS AM - NO FURTHER CO'S. KELTON DIET AND FLUIDS. NO CO'S AT THE RPESENT TIME.
[2018-09-30 19:33] VITALS: BP 106/65
--- NOTE | 2018-10-01 02:14 | NUR ---
ASSESSMENTS CHARTED. UP INDEPENDENTLY. RIGHT GROIN BRUISED FROM PREVIOUS PROCEDURE. 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 HEADACHE TREATED WITH TYLENOL CHARTED. PLAN OF CARE IS TO GO HOME TODAY.
[2018-10-01 05:44] VITALS: BP 109/68
[2018-10-01 05:46] LABS: HEMATOCRIT 26.5 % (42.0-52.0); HEMOGLOBIN 9.3 gm/dL (14.0-18.0); MCHC 35.1 g/dL (28.0-37.0); MCV 88.5 fL (80.0-100.0); RBC 2.99 mil/uL (4.50-6.00); WBC 7.3 thou/uL (4.0-11.0)
[2018-10-01 05:59] LABS: CALCIUM 8.3 mg/dL (8.5-10.1); POTASSIUM 3.7 mmol/L (3.5-5.1)
[2018-10-01 08:00] VITALS: BP 95/60
[2018-10-01 12:22] VITALS: BP 101/61
--- NOTE | 2018-10-01 13:47 | EKG ---
[address] [address] ELECTROCARDIOGRAM REPORT Name: SIMBA RICARDO Room #: 218-P ADM IN M.R.#: [id number] Admission: 09/28/18 Attend Phys: Jarod Toney MD Discharge: Date of : 49 Report #: [id number] THIS REPORT FOR: //name// [facility] Test Date: 2018-10-01 Test Time: 11:00:05 Pat Name: SIMBA RICARDO Department: Room: 218 P Gender: M Medical Office Scheduler: ana : 1945 Requested By: Jl Flores Order Number: [id number] MD: Jl Flores Measurements Intervals [place] Rate: 61 P: 41 NH: 189 QRS: -19 QRSD: 95 T: 2 QT: 408 QTc: 411 Interpretive Statements Sinus rhythm Inferior infarct, old Baseline wander in lead(s) V4,V5 Compared to ECG 09/27/2018 20:54:53 No significant changes Electronically Signed On 10-01-2018 13:47:26 DENTAL APPLIANCE REPAIRER by Jl Flores [email or web address] <ELECTRONICALLY SIGNED> By: Jl Flores MD 10/01/18 1347 1100 1100 Jl Flores MD /EPI
[2018-10-01 16:00] VITALS: BP 108/68
--- NOTE | 2018-10-01 17:18 | NUR ---
PT ALERT AND ORIENTED X4. COMPLAINING OF HEADACHE THIS AM. GIVEN TYLENOL X1 AND REPORTS RELIEF OF PAIN. PT REPORTS THAT HE FEELS WEAK AND TIRED TODAY. AMBULATING IN HALLWAY X2 TODAY WITH STANDBY ASSISTANCE. VSS. PT'S AT BEDSIDE THIS AM. WILL CONTINUE TO MONITOR PATIENT.
[2018-10-01 19:19] VITALS: BP 111/62
[2018-10-02 03:39] VITALS: BP 112/76
--- NOTE | 2018-10-02 05:00 | NUR ---
ASSESSMENT DOCUMENTED. UP AD CY. VOIDS WELL. IV ON THE LEFT FA INATCT AND FLUSHES WELL. LARGE HEMATOMA ON THE RIGHT GROIN STILL NOTED. COMPLAINT OF RIGHT FRONTAL HEADACHE ON AND OFF ACHING. PRN MEDS GIVEN FOR PAIN GIVEN, PATIENT ASLEPT UPON REASSESSMENT. FF UP POC.
[2018-10-02 05:56] LABS: HEMATOCRIT 25.2 % (42.0-52.0); HEMOGLOBIN 8.5 gm/dL (14.0-18.0); MCH 30.1 pg (26.0-34.0); MCHC 33.6 g/dL (28.0-37.0); MCV 89.5 fL (80.0-100.0); RBC 2.82 mil/uL (4.50-6.00); RDW 14.1 % (10.5-14.5); WBC 7.7 thou/uL (4.0-11.0)
[2018-10-02 06:04] LABS: CALCIUM 8.6 mg/dL (8.5-10.1); CREATININE 1.1 mg/dL (0.7-1.3); MAGNESIUM 1.9 mg/dL (1.8-2.4)
[2018-10-02 08:00] VITALS: BP 121/71
--- NOTE | 2018-10-02 17:41 | NUR ---
ASSUMED CARE OF PATIENT AT 0700. PT/VITALS STABLE. DENIES ANY PAIN. TOLERATES ACTIVITY WELL. ASSESSMENT CHARTED. PROGRESSING WELL WITH POC. NO CHEST PAIN OR BILATERAL GROIN PAIN NOTED. PATIENT UNDERWENT KUB AND LACTULOSE TO EVALUATE CONSTIPATION AND ASSIST WITH BM. LBM: 09/29/2018. STOOL SAMPLE PENDING. PATIENT DID AMBULATE THE UNIT TODAY WITH HIS MULTIPLE TIMES. POSITIVE BOWEL SOUNDS AND FLATUS. WILL CONTINUE TO MONITOR AND FOLLOW WITH POC.
[2018-10-02 20:57] VITALS: BP 99/60
[2018-10-03] VITALS (11 sets, daily range): BP systolic 87–103; BP diastolic 50–66
--- NOTE | 2018-10-03 03:18 | NUR ---
AOX4. DENIES PAIN. CLEAR LUNG SOUNDS, ON ROOM AIR. UP AD CY. RIGHT GROIN STILL WITH HEMATOMA. IV ON LEFT FA INTACT AND FLUSHES WELL. STILL FOR OCCULT BLOOD. FF UP POC.
[2018-10-03 04:13] LABS: HEMATOCRIT 22.1 % (42.0-52.0); HEMOGLOBIN 7.6 gm/dL (14.0-18.0); MCH 30.8 pg (26.0-34.0); MCHC 34.2 g/dL (28.0-37.0); RBC 2.46 mil/uL (4.50-6.00); WBC 8.1 thou/uL (4.0-11.0)
[2018-10-03 04:42] LABS: CALCIUM 8.3 mg/dL (8.5-10.1); POTASSIUM 4.1 mmol/L (3.5-5.1)
[2018-10-03 07:50] LABS: % SATURATION 35 % (20-39); IRON 66 ug/dL (65-175); TIBC 190 ug/dL (250-450)
[2018-10-03 10:53] LABS: ALBUMIN 2.5 g/dL (3.4-5.0); DIRECT BILIRUBIN 0.1 mg/dL (<0.1-0.3); TOTAL BILIRUBIN 0.4 mg/dL (<0.1-1.0); TOTAL PROTEIN 6.1 g/dL (6.4-8.2)
[2018-10-03 12:17] LABS: HEMATOCRIT 22.1 % (42.0-52.0); HEMOGLOBIN 7.5 gm/dL (14.0-18.0)
--- NOTE | 2018-10-03 12:18 | NUR ---
PT CALLED THIS NURSE TO ROOM AT 1148 INFORMING HE DOES NOT FEEL GOOD. PT HYPOTENSIVE SEE DOCUMENTATION. PROVIDER NOTIFIED. NEW ORDERS RECIEVED. AOX4, NO PAIN VOICED, PT STOMACH UPSET, GI PROVIDER IN ROOM TALKING WITH PT. BOLUS OF NS INFUSING, PT TO HAVE CT AND 1 UNIT OF BLOOD PER ORDERS. NO S/SX OF RESP OR CARDIAC DISTRESS. WILL CONTINUE TO MONITOR.
[2018-10-04 00:16] VITALS: BP 96/58
[2018-10-04 04:00] VITALS: BP 109/57
[2018-10-04 04:42] LABS: CALCIUM 7.9 mg/dL (8.5-10.1); CREATININE 1.1 mg/dL (0.7-1.3); MAGNESIUM 2.4 mg/dL (1.8-2.4); POTASSIUM 4.2 mmol/L (3.5-5.1)
[2018-10-04 04:43] LABS: HEMATOCRIT 23.1 % (42.0-52.0); HEMOGLOBIN 7.9 gm/dL (14.0-18.0); MCH 30.5 pg (26.0-34.0); MCHC 34.2 g/dL (28.0-37.0); MCV 89.2 fL (80.0-100.0); RBC 2.59 mil/uL (4.50-6.00); RDW 14.5 % (10.5-14.5); WBC 7.9 thou/uL (4.0-11.0)
--- NOTE | 2018-10-04 05:00 | NUR ---
ASSUMED PT CARE AT 1900. VSS. PT A&0X4. ASSESSMNETS AND MEDS GIVEN ARE DOCUMENTED. PT WAS RECIEVING BLOOD PRIOR TO ME TAKING OVER HIS CARE, BLOOD WAS DONE INFUSING AT 2024, AFTER BEING STARTED AT 1800. 250ML OF NS WAS DONE INFUSING AT 2224. PT COMPLAINED OF NO PAIN, DISTRESS OR DISCOMFORT. VITAL SIGNS REMAINS STABLE AFTER INFUSION, ALTHOUGH BP WAS LOW, MAP REMAINED ABOVE 65. HGB BEFORE TRANSUSION WAS 7.5, HGB AFTER TRANSFUSION CAME UP TO 7.9. PT IS STABLE REMAINS ASSYMPTOMATIC, WILL CONTINUE TO MONITOR
[2018-10-04 07:12] VITALS: BP 105/54
[2018-10-04 13:54] VITALS: BP 96/52
[2018-10-04 15:24] LABS: HEMATOCRIT 25.7 % (42.0-52.0); HEMOGLOBIN 8.7 gm/dL (14.0-18.0); MCH 30.8 pg (26.0-34.0); MCHC 33.9 g/dL (28.0-37.0); MCV 90.8 fL (80.0-100.0); RBC 2.83 mil/uL (4.50-6.00); RDW 14.3 % (10.5-14.5)
[2018-10-04 16:54] VITALS: BP 103/58
--- NOTE | 2018-10-04 19:05 | NUR ---
ASSESSMENTS COMPLETED AND DOCUMENTED. EGD DONE TODAY. HGB 8.7. NO COMPLAINTS VOICED. NO S/SX CARDIAC OR RESP DISTRESS. WILL CONTINUE TO MONITOR.
[2018-10-04 19:55] VITALS: BP 101/54
[2018-10-05 03:53] VITALS: BP 101/60
[2018-10-05 04:48] LABS: HEMATOCRIT 22.5 % (42.0-52.0); HEMOGLOBIN 7.6 gm/dL (14.0-18.0); MCH 30.1 pg (26.0-34.0); MCHC 33.6 g/dL (28.0-37.0); MCV 89.6 fL (80.0-100.0); RBC 2.52 mil/uL (4.50-6.00); RDW 13.9 % (10.5-14.5); WBC 8.6 thou/uL (4.0-11.0)
[2018-10-05 09:00] VITALS: BP 103/59
--- NOTE | 2018-10-05 10:00 | NUR ---
Assess for LOS. Admit with acute RI, right iliac dissection s/p stent. Also recent EGD with need for esophageal diliation. Pt reports appetite is fine, ordering off menu own choices. Bed scales weighing much higher than pts reported usual wt of 175 lb. Low nutrition risk
[2018-10-05 11:49] VITALS: BP 97/59
[2018-10-05 15:56] VITALS: BP 101/61
--- NOTE | 2018-10-05 17:09 | PATH ---
[facility] [place] [address] PATHOLOGY RPT PROCEDURE Name: MICHELE RICARDO Room #: 218-P ADM IN M.R.#: [id number] Admission: 09/28/18 Date of : 49 Discharge: Report #: [id number] Path Case #: [id number] [facility] Accession Number: [id number] . 01 Material submitted: . PART A: GASTRITIS BIOPSY R/O H PLORI PART B: ESOPHAGEAL STRICTURE BIOPSY R/O BARRETTS, DYSPLASIA AND NEOPLASM . 01 Clinical history: . Pre-OP DX: Anemia, dysphagia Post-OP DX: Esophagitis, esophageal stricture, duodenitis, hiatal hernia . 02 Diagnosis: A. Gastric mucosa, gastritis rule out H. pylori, endoscopic biopsy: - Mild reactive gastropathy. - Negative for intestinal metaplasia or atrophy. - Negative for Helicobacter pylori (properly controlled immunohistochemical stain performed). . B. Gastroesophageal mucosa, esophageal stricture rule out Obrien's dysplasia neoplasm, endoscopic biopsy: - Gastric fundic-type mucosa with moderate chronic inflammation. - Squamous mucosa with mild esophagitis. - Negative for intestinal metaplasia, dysplasia or malignancy. (IUV/db; 10/05/2018) LBQ/10/05/2018 . 02 Electronically signed: . Ana Sahu MD, Pathologist NPI- [id number] . 01 Gross description: . A. Received in formalin labeled "Michele Ricardo, gastritis biopsy, rule out H. pylori," are 3 segments of mcintyre soft tissue measuring 0.9 x 0.5 x 0.2 cm in aggregate dimensions and ranging from 0.3 to 0.6 cm in maximum dimension. The specimen is submitted entirely in cassette A1. . B. Received in formalin labeled "Michele Brink, esophageal stricture biopsy, rule out Obrien's, dysplasia, neoplasm," is a single segment of mcintyre soft tissue measuring 0.5 cm in maximum dimension. The specimen is entirely submitted in cassette B1. (TSD; 10/04/2018) TOB/TOB . 02 Pathologist provided ICD-10: K31.9, K29.50, K20.9 . 02 [place] [address] PATHOLOGY RPT PROCEDURE Name: MICHELE RICARDO Room #: 218-P [facility] IN .R.#: [id number] Admission: 09/28/18 Date of : 49 Discharge: Report #: [id number] Path Case #: [id number] [facility] . [id number] Specimen Comment: A courtesy copy of this report has been sent to Specimen Comment: [phone], , . Specimen Comment: Report sent to ,DR DEAN / DR REILLY Performed at: [address] [facility], [place], [place] [id number] MD Zheng Weiner MD Phone: [phone] Performed at: [address] [facility] [id number] MD Ana Sahu MD Phone: [phone]
--- NOTE | 2018-10-05 17:30 | NUR ---
PT CARE ASSUMED 0700. ALERT AND ORIENTED X4. DENIES PAIN AND SOA. VSS. STEADY GAIT. IRON INFUSION COMPLETED THIS AM. APPETITE GOOD. NO BM THIS REPORTED THIS SHIFT TO ASSESS FOR BLOOD. ANTICOAG THERAPY RESUMED. PT DENIES QUESTIONS OR CONCERNS REGARDING POC. NO DISTRESS NOTED.
[2018-10-05 20:24] VITALS: BP 111/73
[2018-10-06 03:20] LABS: CALCIUM 8.4 mg/dL (8.5-10.1); CREATININE 1.1 mg/dL (0.7-1.3)
[2018-10-06 03:22] LABS: HEMATOCRIT 24.5 % (42.0-52.0); HEMOGLOBIN 8.1 gm/dL (14.0-18.0); MCH 29.8 pg (26.0-34.0); MCHC 33.2 g/dL (28.0-37.0); RBC 2.72 mil/uL (4.50-6.00); RDW 14.1 % (10.5-14.5); WBC 9.1 thou/uL (4.0-11.0)
--- NOTE | 2018-10-06 04:47 | NUR ---
pt ambulating in halls with spouse several times early in shift, no c/o pain, l ac old infiltrated iv site elevated and ice packs alternated on and off thru the noc, pt stated if feels much better, vss, will con't to monitor per ppoc.
[2018-10-06 04:56] VITALS: BP 116/69
[2018-10-06 08:22] VITALS: BP 109/67
[2018-10-06 12:00] VITALS: BP 99/64
[2018-10-06] MEDS ORDERED: HOME MEDICATION OPHTHALMIC ×2 (13:51)
[2018-10-06] MEDS ORDERED: ASPIR 8181 MG PO (13:51)
[2018-10-06] MEDS ORDERED: PROTONIX40 M1 PO (13:51)
[2018-10-06 14:37] VITALS: BP 99/64
--- NOTE | 2018-10-06 15:20 | NUR ---
PT CARE ASSUMED APPROX 0700. PT ALERT AND ORIENTED X4. DENIED PAIN AND SOA. VSS. PT DISCHARGED HOME THIS SHIFT TO SELF CARE. SPOUSE AT BEDSIDE FOR DISCHARGE EDUCATION. PT AND SPOUSE BOTH DENY QUESTIONS OR CONCERNS REGARDING DISCHARGE MEDS, F/U APPTS, DIET, ACTIVITY LEVEL AND GENERAL POST HOSPITAL CARE. IV OUT, TELE BOX OFF. ALL BELONGINGS IN PT POSSESSION. PRESENT TO PROVIDE TRANSPORTATION HOME. HOSPITAL STAFF ESCORTED PT OUT.
--- NOTE | 2018-10-07 17:49 | P ---
[facility] [place] [address] [place] [address] PROCEDURE REPORT Name: SIMBA RICARDO Room #: 218-P [facility] IN ..#: [id number] Admission: 09/28/18 Attend Phys: Jarod Toney MD Discharge: 10/06/18 Date of : 49 Report #: [id number] THIS REPORT FOR: //name// CC: Jarod Feliciano MD BRIEF HISTORY: The patient is a 73-year-old male who recently had cardiovascular intervention and was on aspirin and Effient. He has had a recent drop in hemoglobin and hypotension requiring transfusion. He does have longstanding esophageal symptoms and takes famotidine, and Tums. He received 2 units of blood today and is feeling much better today with stable hemoglobin. PREOPERATIVE DIAGNOSES: Anemia and reflux symptoms. He also has solid food dysphagia. POSTOPERATIVE DIAGNOSES: 1. Moderately tight esophageal stricture at distal esophagus with ulceration, but not bleeding. 2. A 4-5 cm sliding type hiatus hernia. 3. Grade D esophagitis. 4. Patchy bulbar duodenitis. 5. Mild gastritis. MEDICATIONS: Deep sedation with propofol per anesthesia. SPECIMENS: 1. Biopsies of gastritis. 2. Biopsies of stricture. ESTIMATED BLOOD LOSS: 3 mL. PROCEDURE: EGD with balloon dilation of esophageal stricture and biopsy. FINDINGS: Prior to propofol sedation, procedure of upper endoscopy and potential dilation was discussed with the patient as well as potential risks and its complications. He indicates he understands and desires to proceed. DESCRIPTION OF PROCEDURE: With the patient in left decubitus position, the Olympus video endoscope was inserted in the cervical esophagus under direct vision without difficulty. Examination of this organ through its entire length revealed normal esophageal mucosa down to the distal esophagus. In the distal esophagus, there were erosions and ulcerations consistent with grade D esophagitis. There was also noted to be a moderately tight stricture with some exudate. The stricture was too tight to allow forward advancement of the scope. Active bleeding was not encountered. We then used 8, 9 and [address] [facility] [address] [place] [address] PROCEDURE REPORT Name: SIMBA RICARDO Room #: 218-P [facility] IN M.R.#: [id number] Admission: 09/28/18 Attend Phys: Jarod Toney MD Discharge: 10/06/18 Date of : 49 Report #: [id number] dilate the stricture. This was done without difficulty. Once stricture was dilated, the scope passed easily into the stomach. Upon passage of the scope, a 4-5 cm sliding type hiatus hernia was encountered. The mucosa in the hernia was normal. There was no evidence of bleeding. Scope was advanced fully into the stomach, was examined on end view as well as retroflexed views. There was no blood in the stomach. There was a mild diffuse gastritis on end view as well as retroflexed views. No ulcers were seen. No blood was seen. Biopsies obtained for H. pylori. The pylorus was normal. Duodenum: The exam of duodenal bulb revealed patchy bulbar duodenitis. No ulcers or bleeding. The duodenal sweep down to the third portion was unremarkable. No blood was seen. At that point, the scope was slowly withdrawn and careful circumferential views were obtained. There was good hemostasis. Scope was withdrawn. The patient tolerated the procedure well. DISPOSITION: The patient with recent drop in hemoglobin following cardiovascular interventions. I do not see any blood in the stomach. He clearly has esophagitis with some ulceration. However, the patient has not had hematemesis nor has he had any melenic stools as of this time. I do not see that he has had significant GI bleed at this point in time. We will treat him with a proton pump inhibitor. He will likely require further dilation in the future. We will advance diet at this point in time. <ELECTRONICALLY SIGNED> By: Giovanni Easton MD 10/07/18 1749 1243 1746 Giovanni Easton MD /nt
== END 2018-10-06 15:29 | disposition home or self-care (01) | DRG 252 ==
LOC: ER 20:50 → ICU 09-28 00:33 → EROBS 09-28 00:33 → ICU 09-28 00:33 → 2N 09-29 18:45 → ENTRNSPT 10-06 15:11 → EDTRNSPTSTS 10-06 15:26 → 2N 10-06 15:29
PROVIDERS: Emergency Medicine; Hospitalist; Internal Medicine; Nuclear Medicine Nuclear Cardiology; Nurse Practitioner; Nurse Practitioner Acute Care; ADMIT Internal Medicine
PROC: B4181ZZ Fluoroscopy of Bilateral Renal Arteries using Low Osmolar Contrast (ICD-10-PCS; principal; 2018-09-28)
PROC: 047C3DZ Dilation of Right Common Iliac Artery with Intraluminal Device, Percutaneous Approach (ICD-10-PCS; principal; 2018-09-28)
PROC: B41D1ZZ Fluoroscopy of Aorta and Bilateral Lower Extremity Arteries using Low Osmolar Contrast (ICD-10-PCS; principal; 2018-09-28)
PROC: 047H3DZ Dilation of Right External Iliac Artery with Intraluminal Device, Percutaneous Approach (ICD-10-PCS; principal; 2018-09-28)
PROC: 30233N1 Transfusion of Nonautologous Red Blood Cells into Peripheral Vein, Percutaneous Approach (ICD-10-PCS; 2018-10-04)
PROC: 0D758ZZ Dilation of Esophagus, Via Natural or Artificial Opening Endoscopic (ICD-10-PCS; 2018-10-04)
PROC: 0DB68ZX Excision of Stomach, Via Natural or Artificial Opening Endoscopic, Diagnostic (ICD-10-PCS; 2018-10-04)
DX: I71.02 Dissection of abdominal aorta (principal); I21.9 Acute myocardial infarction, unspecified; I77.72 Dissection of iliac artery; K29.71 Gastritis, unspecified, with bleeding; K29.81 Duodenitis with bleeding; D62 Acute posthemorrhagic anemia; K22.10 Ulcer of esophagus without bleeding; I95.9 Hypotension, unspecified; R13.10 Dysphagia, unspecified; K22.2 Esophageal obstruction; K44.9 Diaphragmatic hernia without obstruction or gangrene; I25.10 Atherosclerotic heart disease of native coronary artery without angina pectoris; E78.5 Hyperlipidemia, unspecified; G47.33 Obstructive sleep apnea (adult) (pediatric); R00.1 Bradycardia, unspecified; K31.9 Disease of stomach and duodenum, unspecified; E78.00 Pure hypercholesterolemia, unspecified; K21.9 Gastro-esophageal reflux disease without esophagitis; K59.00 Constipation, unspecified; S30.22XA Contusion of scrotum and testes, initial encounter; Z79.82 Long term (current) use of aspirin; Z79.899 Other long term (current) drug therapy; Z95.5 Presence of coronary angioplasty implant and graft; Z88.0 Allergy status to penicillin; Z82.49 Family history of ischemic heart disease and other diseases of the circulatory system; Z88.2 Allergy status to sulfonamides; X58.XXXA Exposure to other specified factors, initial encounter; Y93.89 Activity, other specified; Y92.89 Other specified places as the place of occurrence of the external cause; Y99.8 Other external cause status
CPT/HCPCS: 10078; 10081; 62110; 62900

== ENCOUNTER 2018-10-10 19:11 | Inpatient (IN) | payer OTHER ==
[~2018-10-10] VITALS: Ht 185.4 cm; Wt 77.6 kg
[~2018-10-10 19:11] MED LIST changes: +ASPIR 8181 MG PO; +HOME MEDICATION OPHTHALMIC; +PROTONIX40 M1 PO
[2018-10-10 19:13] VITALS: BP 134/66
[2018-10-10 19:55] LABS: HEMOGLOBIN 9.2 gm/dL (14.0-18.0); MCH 30.5 pg (26.0-34.0); MCHC 35.3 g/dL (28.0-37.0); MCV 86.5 fL (80.0-100.0); RBC 3.01 mil/uL (4.50-6.00); RDW 14.8 % (10.5-14.5); WBC 9.7 thou/uL (4.0-11.0)
[2018-10-10 20:07] LABS: ANION GAP 13 mmol/L (7-16); BUN 19 mg/dL (7-18); CALCIUM 8.7 mg/dL (8.5-10.1); CHLORIDE 101 mmol/L (98-107); CO2 21 mmol/L (21-32); CREATININE 1.3 mg/dL (0.7-1.3); GLUCOSE 131 mg/dL (74-106); SODIUM 135 mmol/L (136-145)
[2018-10-10 20:15] LABS: ALBUMIN 2.5 g/dL (3.4-5.0); LIPASE 330 U/L (73-393); SGOT 20 U/L (15-37); SGPT 23 U/L (30-65); TOTAL BILIRUBIN 0.5 mg/dL (<0.1-1.0); TOTAL PROTEIN 7.1 g/dL (6.4-8.2); TROPONIN-I <0.06 ng/mL (<0.06)
[2018-10-10 22:43] VITALS: BP 131/71
--- NOTE | 2018-10-10 22:45 | NUR ---
sbar and info faxed to the floor
[2018-10-10 23:57] VITALS: BP 102/60
[2018-10-11 00:01] VITALS: BP 105/57
--- NOTE | 2018-10-11 01:27 | NUR ---
PT ADMITED TO THE UNIT AT APPROX 2250 FROM THE ER IN A STABLE CONDITION.ASSESSMENT, HX AND EDUCATION COMPLETED.PT DENIED PAIN/N/V ON ADMIT.PER PT,HE AHD LARGE BM IN THE ER AFTER RECEIVING ENEMA.PT STATED THAT HE FEELS MUCH BETTER NOW.NO PEDAL PULSES NOTED,WAS GOTTEN IN ER VIA DOPPLER. PT RESTING ON HIS BED AT THIS TIME.CALL LIGHTY WITHIN REACH.
[2018-10-11 04:04] LABS: CALCIUM 8.1 mg/dL (8.5-10.1); CREATININE 1.1 mg/dL (0.7-1.3); POTASSIUM 4.7 mmol/L (3.5-5.1)
[2018-10-11 04:52] VITALS: BP 94/49
[2018-10-11 07:50] VITALS: BP 113/67
--- NOTE | 2018-10-11 08:22 | EKG ---
[address] [address] ELECTROCARDIOGRAM REPORT Name: SIMBA RICARDO Room #: 431-P ADM IN M.R.#: [id number] Admission: 10/10/18 Attend Phys: Maria Alejandra Banuelos Discharge: Date of : 49 Report #: [id number] THIS REPORT FOR: //name// [facility] ED Test Date: 2018-10-10 Test Time: 19:23:54 Pat Name: SIMBA RICARDO Department: Room: [facility] Gender: M Surgical Scrub Technician: BEN : 1945 Requested By: Caprice Traylor Order Number: [id number] MD: Jl Flores Measurements Intervals [place] Rate: 57 P: 36 IN: 188 QRS: -17 QRSD: 87 T: -18 QT: 428 QTc: 417 Interpretive Statements Sinus rhythm Abnormal R-wave progression, early transition Compared to ECG 10/01/2018 11:00:05 No significant changes Electronically Signed On 10-11-2018 8:22:17 BARREL POLISHER by Jl Flores [email or web address] <ELECTRONICALLY SIGNED> By: Jl Flores MD 10/11/18821 22 22 Jl Flores MD /DARIAN
--- NOTE | 2018-10-11 11:08 | NUR ---
ASSUMED CARE THIS AM, SHIFT ASSESSMENT DONE, MEDS GIVEN, VSS. HAD A LARGE BM YESTERDAY. DENIES NAUSEA, VOMITING AT THIS TIME. DENIES ANY ABDOMINAL PAIN, PASSING FLATUS. WILL CONTINUE TO ASSESS AND ASSIST WITH ADLs NEEDED.
[2018-10-11] MEDS ORDERED: ASPIRIN81 M2 PO (11:30)
[2018-10-11] MEDS ORDERED: XALATAN2.5 ML OPHTHALMIC (11:32)
[2018-10-11] MEDS ORDERED: TIMOLOL GL0.5 %/5 M1 OPHTHALMIC (11:32)
[2018-10-11] MEDS ORDERED: UNICOMPLEX M TA1 TA1 PO (11:32)
[2018-10-11] MEDS ORDERED: KRILL OIL500 MG PO (11:33)
[2018-10-11] MEDS ORDERED: MIRALAX17 GM PO (12:33)
[2018-10-11 12:49] VITALS: BP 113/67
== END 2018-10-11 13:45 | disposition home or self-care (01) | DRG 391 ==
LOC: ER 19:11 → EROBS 22:09 → 4E 22:09 → ENTRNSPT 10-11 13:33 → EDTRNSPTSTS 10-11 13:35 → 4E 10-11 13:45
PROVIDERS: Nurse Practitioner Family; Student in an Organized Health Care Education/Training Program; ADMIT Hospitalist
DX: K59.00 Constipation, unspecified (principal); E43 Unspecified severe protein-calorie malnutrition; I25.10 Atherosclerotic heart disease of native coronary artery without angina pectoris; I10 Essential (primary) hypertension; E78.5 Hyperlipidemia, unspecified; K21.9 Gastro-esophageal reflux disease without esophagitis; D64.9 Anemia, unspecified; K22.2 Esophageal obstruction; Z95.5 Presence of coronary angioplasty implant and graft; I25.2 Old myocardial infarction; Z88.0 Allergy status to penicillin; Z88.2 Allergy status to sulfonamides; Z82.49 Family history of ischemic heart disease and other diseases of the circulatory system
CPT/HCPCS: 10084

== ENCOUNTER → 2018-11-24 | Outpatient (CLI) | payer OTHER ==
[~2018-11-24] VITALS: Ht 182.9 cm; Wt 77.1 kg
[~2018-11-24] MED LIST changes: +ASPIRIN81 M2 PO; +KRILL OIL500 MG PO; +MIRALAX17 GM PO; +TIMOLOL GL0.5 %/5 M1 OPHTHALMIC; +UNICOMPLEX M TA1 TA1 PO; +XALATAN2.5 ML OPHTHALMIC
--- NOTE | ~2018-11-24 | P ---
[facility] [place] [address] [place] [address] PROCEDURE REPORT Name: LORI RICARDO Room #: REG [facility]#: [id number] Admission: 11/24/18 ������������������ Attend Phys: Giovanni Easton MD Discharge: ������������������ Date of : 49 Report #: [id number] THIS REPORT FOR: //name// CC: Buck Reynoso MD [facility] Giovanni Feliciano MD DATE OF SERVICE: 11/24/2018 BRIEF HISTORY: The patient is a 73-year-old male known to me with recent problems with dysphagia. EGD in February of last year revealed severe grade D esophagitis with esophageal stricture. He was dilated and placed on twice daily pantoprazole. Since that time, he reports he is much improved. He reports his dysphagia has improved. He reports heartburn symptoms are under good control. PREOPERATIVE DIAGNOSES: Esophageal stricture and dysphagia with severe esophagitis for followup and re-dilation. POSTOPERATIVE DIAGNOSES: 1. Nearly completely healed esophagitis. 2. A 2-3 cm sliding type hiatus hernia. 3. Diffuse gastritis. 4. Benign appearing esophageal stricture. MEDICATIONS: Deep sedation with propofol per anesthesia. SPECIMEN: Biopsy of distal esophagus, rule out Obrien. ESTIMATED BLOOD LOSS: 3 mL. PROCEDURE: EGD with biopsy and balloon dilation of esophageal stricture. FINDINGS: Prior to propofol sedation, procedure of upper endoscopy was discussed with the patient as well as potential risks and its complications. He indicates he understands and desires to proceed. DESCRIPTION OF PROCEDURE: With the patient in left lateral decubitus position, the Olympus video endoscope was inserted in the cervical esophagus under direct vision without difficulty. Examination of this organ through its entire length revealed normal esophageal mucosa into the distal esophagus. He had severe grade D esophagitis previously. However, on today's exam, the esophagitis is nearly completely resolved. There were a few islands of very mild esophagitis. The area of squamocolumnar junction was inspected. He had a smooth [facility] [address] [address] PROCEDURE REPORT Name: DAVIONLORI Room #: [facility]#: [id number] Admission: 11/24/18 ������������������ Attend Phys: Giovanni Easton MD Discharge: ������������������ Date of : 49 Report #: [id number] non-ulcerated benign appearing stricture. It is of interest to note, the patient reports the swallowing is much improved. However, today the scope would not pass through the stricture. It appeared as if it was large enough to allow the scope to pass, but it hung up at the level of the stricture. We then dilated with a 10, 11 and 12 mm balloon. Following dilation, the scope passed easily through the stricture. There was no bleeding or mucosal tearing of the dilation. Scope was advanced and 2-3 cm sliding type hiatus hernia was seen. The mucosa and hernia was normal. The scope was advanced into the stomach, which was examined on end view as well as retroflexed views. There was a pattern of diffuse gastritis. No evidence of ulcers or bleeding. Upon retroflexion, the hiatus hernia was seen. No other abnormalities were identified. The pylorus, duodenal bulb, and postbulbar sweep were inspected and noted to be unremarkable. The scope was withdrawn back into the esophagus. We then dilated with 13.5 mm balloon and significant tearing was not seen. In view of the fact he is on antiplatelet therapy, it was felt best to stop at this point. Also, in the distal esophagus there was noted to be 1 cm of possible Obrien mucosa. A single biopsy was taken. Scope was withdrawn. The patient tolerated the procedure well. CONDITION OF THE PATIENT UPON DISCHARGE: Following the procedure, the patient is drowsy and arousable, will be discharged home when fully ambulatory. INSTRUCTIONS TO THE PATIENT AND FAMILY AT THE TIME OF DISCHARGE: We will have him continue pantoprazole 40 mg daily. He reports symptoms are much improved, but he still has significant stricturing. We will discuss further with the patient. He is on antiplatelet therapy and will try to determine the length of his duration for antiplatelet therapy. Ideally, it would be nice to more aggressively dilate him on antiplatelet therapy. He will return to care of Dr. Mitch Feliciano and Dr. Reynoso. We will follow up on biopsies and make further recommendations in regard to follow up. ��������������������������������������������� ���������������������������������������� By: ��������������������������������������������� 0958 2123 Giovnani Easton MD /rodolof
--- NOTE | 2018-11-25 16:06 | PATH ---
[facility] [address] [place] [address] PATHOLOGY RPT PROCEDURE Name: DAVIONLORI Room #: REG [facility] Rocha.#: [id number] ������������������ Admission: 11/24/18 ������������������ Date of : 49 Discharge: Report #: [id number] Path Case #: [id number] [facility] Accession Number: [id number] . 01 Material submitted: . BX DISTAL ESOPHAGUS . 01 Clinical history: . Dysphagia Esophagitis, hiatus hernia, gastritis, esophageal stricture Rule out Obrien's . 02 Diagnosis: Gastroesophageal mucosa, distal esophagus rule out Obrien's, endoscopic biopsy: - Gastric fundic-type mucosa with moderate to marked active inflammation showing reactive changes. - Negative for intestinal metaplasia (Obrien's) or dysplasia. - Squamous mucosa showing moderate active esophagitis. (IUV:director web; 11/25/2018) MBR/11/25/2018 . 02 Comment: A GMS fungal special stain is ordered due to the findings and the results of this will be reported in an addendum to follow. (IUV:director web; 11/25/2018) . 02 Electronically signed: . Ana Sahu MD, Pathologist NPI- [id number] . 01 Gross description: . The specimen is received in formalin, labeled "Lori Bullard, BX distal esophagus" and consists of a translucent fragment of dickerson-mcintyre tissue measuring 0.4 x 0.3 x 0.1 cm which is entirely submitted in A1. (SDY; 11/24/2018) SYU/SYU . 02 Pathologist provided ICD-10: K20.9 . 02 CPT . 416724 Specimen Comment: A courtesy copy of this report has been sent to Specimen Comment: [phone], . Specimen Comment: Report sent to / DR DEAN Performed at: [address] [address] PATHOLOGY RPT PROCEDURE Name: DAVIONLORI Room #: REG [facility]#: [id number] ������������������ Admission: 11/24/18 ������������������ Date of : 49 Discharge: Report #: [id number] Path Case #: [id number] [address], [place], [place] [id number] MD Zheng Weiner MD Phone: [phone] Performed at: [address] [facility] [address] [id number] MD Ana Shau MD Phone: [phone]
== END | disposition home or self-care (01) ==
LOC: GI 08:11
DX: K20.9 Esophagitis, unspecified (principal); K22.2 Esophageal obstruction; K44.9 Diaphragmatic hernia without obstruction or gangrene; I21.3 ST elevation (STEMI) myocardial infarction of unspecified site; Z95.5 Presence of coronary angioplasty implant and graft; I73.9 Peripheral vascular disease, unspecified; E78.5 Hyperlipidemia, unspecified; K21.9 Gastro-esophageal reflux disease without esophagitis
CPT/HCPCS: 62110; 62900

== ENCOUNTER → 2019-09-12 | Outpatient (CLI) | payer OTHER | LOC: SJCVCIMAG 13:29 | DX: I25.10 Atherosclerotic heart disease of native coronary artery without angina pectoris (principal); I25.5 Ischemic cardiomyopathy ==

== ENCOUNTER → 2020-03-12 | Outpatient (CLI) | payer OTHER | LOC: SJCVC 13:16 | PROVIDERS: ATTEND Internal Medicine | DX: R94.31 Abnormal electrocardiogram [ECG] [EKG] (principal); R00.1 Bradycardia, unspecified; I25.10 Atherosclerotic heart disease of native coronary artery without angina pectoris; E78.5 Hyperlipidemia, unspecified; I73.9 Peripheral vascular disease, unspecified; G47.33 Obstructive sleep apnea (adult) (pediatric); K21.9 Gastro-esophageal reflux disease without esophagitis; I25.2 Old myocardial infarction; Z99.89 Dependence on other enabling machines and devices; Z79.899 Other long term (current) drug therapy ==

== ENCOUNTER → 2020-10-02 | Outpatient (CLI) | payer OTHER | LOC: SJCVC 13:57 | PROVIDERS: ATTEND Internal Medicine | DX: I25.10 Atherosclerotic heart disease of native coronary artery without angina pectoris (principal); R94.31 Abnormal electrocardiogram [ECG] [EKG]; R00.1 Bradycardia, unspecified; E78.5 Hyperlipidemia, unspecified; I73.9 Peripheral vascular disease, unspecified; G47.33 Obstructive sleep apnea (adult) (pediatric); K21.9 Gastro-esophageal reflux disease without esophagitis; I25.2 Old myocardial infarction; Z99.89 Dependence on other enabling machines and devices; Z88.8 Allergy status to other drugs, medicaments and biological substances; Z79.82 Long term (current) use of aspirin; Z79.899 Other long term (current) drug therapy; Z82.49 Family history of ischemic heart disease and other diseases of the circulatory system ==

== ENCOUNTER → 2020-10-08 | Outpatient (CLI) | payer OTHER | LOC: SJCVC 11:45 | PROVIDERS: ATTEND Internal Medicine | DX: E78.5 Hyperlipidemia, unspecified (principal); K21.9 Gastro-esophageal reflux disease without esophagitis; G47.33 Obstructive sleep apnea (adult) (pediatric); I25.2 Old myocardial infarction; I25.10 Atherosclerotic heart disease of native coronary artery without angina pectoris; I73.9 Peripheral vascular disease, unspecified; Z79.82 Long term (current) use of aspirin; Z79.899 Other long term (current) drug therapy ==

== ENCOUNTER → 2021-10-10 | Outpatient (CLI) | payer OTHER | LOC: SJCVC 08:10 | PROVIDERS: ATTEND Internal Medicine | DX: E78.1 Pure hyperglyceridemia (principal); K21.9 Gastro-esophageal reflux disease without esophagitis; G47.33 Obstructive sleep apnea (adult) (pediatric); K29.81 Duodenitis with bleeding; Z99.89 Dependence on other enabling machines and devices; I21.19 ST elevation (STEMI) myocardial infarction involving other coronary artery of inferior wall; I25.10 Atherosclerotic heart disease of native coronary artery without angina pectoris; I25.5 Ischemic cardiomyopathy; E78.5 Hyperlipidemia, unspecified; R53.83 Other fatigue; D64.9 Anemia, unspecified; Z79.82 Long term (current) use of aspirin; Z79.899 Other long term (current) drug therapy; Z88.5 Allergy status to narcotic agent; Z88.0 Allergy status to penicillin; Z98.890 Other specified postprocedural states ==